=== PATIENT | female | born 1960 | race African-American/Black ===

== ENCOUNTER 2020-10-20 17:21 | Emergency (ER) | payer OTHER ==
[2020-10-20 17:27] VITALS: BP 163/49; PULSE 75; TEMP 98; BMI 37.2
== END 2020-10-20 18:27 | disposition home or self-care (01) ==
LOC: JERFT 17:21
DX: S16.1XXA Strain of muscle, fascia and tendon at neck level, initial encounter (principal); V49.50XA Passenger injured in collision with unspecified motor vehicles in traffic accident, initial encounter
CPT/HCPCS: 99283-25